=== PATIENT | male | born 1995 | race Caucasian/White ===

== ENCOUNTER 2022-04-15 09:45 | Emergency (ER) | payer MEDICAID, OTHER ==
[~2022-04-15] VITALS: Ht 185.4 cm; Wt 89.0 kg
[2022-04-15 09:53] VITALS: BP 133/67
[2022-04-15] MEDS ORDERED: ALBU6.7H15 INH (12:02)
== END 2022-04-15 14:57 | disposition home or self-care (01) ==
LOC: ER 09:45
DX: B34.9 Viral infection, unspecified (principal); Z20.822 Contact with and (suspected) exposure to COVID-19
CPT/HCPCS: 71045; 87426; 99284; C9803

== ENCOUNTER 2022-05-16 18:14 | Emergency (ER) | payer MEDICAID, OTHER ==
[~2022-05-16] VITALS: Ht 188 cm; Wt 113.0 kg
[~2022-05-16 18:14] MED LIST: ALBU6.7H15 INH
[2022-05-16 18:28] VITALS: BP 129/74
[2022-05-16] MEDS ORDERED: MAGNESIUM/ALUMINUM HYDROXIDE/SIMETHICONE 30ML UDC PO STA (23:09)
[2022-05-16] MEDS ORDERED: DICYCLOMINE 10 MG/5 ML ORAL SYR PO STA (23:09)
[2022-05-16] MEDS ORDERED: VISCOUS LIDOCAINE 2% 15 ML UDC PO STA (23:09)
[2022-05-17 00:09] LABS: BASOPHILS % 0.1 % (0.0-2.0); HEMATOCRIT. 47.1 % (42.0-52.0); HEMOGLOBIN. 16.1 g/dL (14.0-18.0); LYMPHOCYTES % 12.7 % (20.0-50.0); MEAN CORPUSCULAR HEMOGLOBIN 29.8 pg (28.0-32.0); MEAN CORPUSCULAR VOLUME 87.1 fL (80.0-94.0); MEAN PLATELET VOLUME 9.4 fl (7.4-10.4); MONOCYTES % 7.7 % (2.0-8.0); NEUTROPHILS % 79.5 % (40.0-76.0); PLATELET 214 x1000/uL (130-400); RED BLOOD CELL COUNT 5.41 mill/uL (4.7-6.1); RED CELL DISTRIBUTION WIDTH 13.9 % (11.6-14.6)
[2022-05-17 00:34] LABS: CHLORIDE 103 mEq/L (98-107)
[2022-05-17] MEDS ORDERED: MAG355OR21 MT (00:56)
== END 2022-05-17 01:03 | disposition home or self-care (01) ==
LOC: ER 18:21
DX: R10.31 Right lower quadrant pain (principal)
CPT/HCPCS: 36415; 80053; 85025; 99284